=== PATIENT | male | born 1995 | race Caucasian/White ===

== ENCOUNTER 2016-11-29 09:30 | Emergency (ER) | payer BC ==
[~2016-11-29] VITALS: Ht 180.3 cm; Wt 109.1 kg
[~2016-11-29 09:30] MED LIST: MIDRIN
[2016-11-29 09:38] VITALS: BP 146/71; TEMP 98.8
[2016-11-29] MEDS ORDERED: CLEOCIN HC150 MG/CAP PO (11:05)
[2016-11-29 11:21] LABS: BASO # 0.1 (0.0-0.2); BASO % 0.4 % (0.0-2.0); EOS # 0.1 (0.0-0.7); GRAN # 10.6 (1.4-6.5); GRAN % 76.7 % (42.2-75.2); HEMATOCRIT 44.5 % (42.0-52.0); HEMOGLOBIN 14.9 g/dl (13.5-18.0); LYMPH # 1.6 (1.2-3.4); LYMPH % 11.4 % (20.0-51.0); MEAN CELL VOLUME 91 fl (80.0-100.0); MEAN CORPUSCULAR HEMOGLOBIN 31 pg (27.0-31.0); MEAN CORPUSCULAR HGB CONC 34 g/dl (33.0-37.0); MEAN PLATELET VOLUME 10.2 fl (7.4-10.4); MONO # 1.4 (0.1-0.6); PLATELET COUNT 340 K/mm3 (130-400); RED BLOOD COUNT 4.89 M/mm3 (4.20-5.60); REDCELL DISTRIBUTION WIDTH-CV 12.8 % (11.5-14.5); WHITE BLOOD COUNT 13.9 K/mm3 (4.8-10.8)
[2016-11-29 11:22] LABS: ADJUSTED CALCIUM 9.3 mg/dL (8.4-10.2); ALBUMIN 3.9 gm/dL (3.5-5.0); CALCIUM 9.2 mg/dL (8.4-10.2); CREATININE, serum 0.73 mg/dL (0.66-1.25); TOTAL PROTEIN 7.5 gm/dL (6.4-8.2)
[2016-11-29] MEDS ORDERED: NORCO 325 MG-51 TAB PO (11:42)
[2016-11-29 12:42] VITALS: PULSE 71
== END 2016-11-29 12:42 | disposition home or self-care (01) ==
LOC: COL.ER 09:30
PROVIDERS: Physician Assistant
DX: J36 Peritonsillar abscess (principal); R59.0 Localized enlarged lymph nodes
CPT/HCPCS: J1100; J1200; J2270; J7030